=== PATIENT | male | born 1975 | race Caucasian/White ===

== ENCOUNTER 2023-02-27 11:58 | Emergency (ER) | payer SELFPAY ==
[2023-02-27] MEDS ORDERED: Sulfamethoxazole/Trimethoprim DS TABLET PO STA (12:14)
[2023-02-27] MEDS ORDERED: Tetanus/Diphtheria/Pertussis (Acell) ADULT Vaccine 0.5 ML IM ONE (12:15)
[2023-02-27] MEDS ORDERED: CEPHALEXIN 250 MG CAPSULE PO STA (12:15)
--- NOTE | 2023-02-27 12:20 | ED Integumentary General ---
General Chief Complaint: Skin/Wound Problems Stated Complaint: BILAT FEET PAIN Nursing Triage Note: PT AMB TO RM 6 PT CO OF WOUNDS TO FEET AND HANDS FROM CARRYING WOOD, PT CO OF PAIN 7/10 IN FEET. PT HAS AREAS OF BREAKDOWN THAT ARE REDDEND, SCABBED, PAINFUL AND HAVE YELLOWISH TYPE DRAINAGE NOTED. STARTED ON SATURDAY Source: patient Exam Limitations: no limitations History of Present Illness Date Seen by Provider: Feb 27, 2023 Time Seen by Provider: 12:17 Initial Comments Patient is a 47-year-old male who presents to the ED for wounds to his lower extremities. Patient states he is currently homeless. Has been sleeping outside. He states about a week ago he slipped fell scratching the top side of his foot. He is felt like his foot got caught in [place] and resulted in a skin abrasion. Over the past 2 or 3 days he has noted some redness and swelling and purulent drainage from the wounds to bilateral feet. He did have some sores to his hands but those seem to improve a week prior. Denies any drug use or alcohol use. Denies fever, chills, nausea, vomiting, diarrhea, chest pain, shortness of breath, cough.. Patient able to ambulate. Patient denies history of diabetes. Denies cleaning the wounds. He is not up-to-date on his tetanus. Allergies and Home Medications Allergies Coded Allergies: No Known Drug Allergies (Unverified , 02/27/23) Patient Home Medication List Home Medication List Reviewed: Yes Cephalexin (Cephalexin) 500 Mg Tablet, 500 MG PO QID Prescribed by: KAYLEE JOSHUA on 02/27/23 1227 Sulfamethoxazole/Trimethoprim (Bactrim Ds Tablet) 800 Mg-160 Mg Tablet, 1 EACH PO BID Prescribed by: KAYLEE JOSHUA on 02/27/23 1227 Review of Systems Review of Systems Constitutional: No chills, No diaphoresis, No fever, No malaise, No weakness EENTM: No hearing loss, No ear pain, No blurred vision Respiratory: No cough Cardiovascular: No chest pain Gastrointestinal: No abdominal pain, No diarrhea, No nausea, No vomiting Genitourinary: No decreased output, No discharge Musculoskeletal: No back pain, No joint pain, No joint swelling; muscle pain Skin: change in color All Other Systems Reviewed Negative Unless Noted: Yes Past Orsxleu-Ufyfcz-Xlugts Hx Patient Social History Tobacco Use?: Yes Tobacco type used: Cigarettes Smoking Status: Current Everyday Smoker Use of E-Cig and/or Vaping dev: No Substance use?: Yes Substance type: Methamphetamine, Marijuana Alcohol Use?: No Pt feels they are or have been: No Immunizations Up To Date First/Initial COVID19 Vaccinat: YES Second COVID19 Vaccination Ramsey: YES Physical Exam Vital Signs Vital Signs - First Documented 02/27/23 12:05 Temp 35.6 Pulse 93 Resp 18 B/P (MAP) 126/86 (99) Pulse Ox 99 Capillary Refill : Less Than 3 Seconds General Appearance: WD/WN, no apparent distress HEENT: PERRL/EOMI, normal ENT inspection, TMs normal, pharynx normal Neck: non-tender, full range of motion, supple Cardiovascular: regular rate, rhythm, no edema, no gallop, no JVD Respiratory: chest non-tender, lungs clear, normal breath sounds, no respirator y distress, no accessory muscle use Gastrointestinal: normal bowel sounds, non tender, no organomegaly Back: normal inspection, no CVA tenderness Extremities: other (Superficial wounds noted to the lower extremity bilateral with purulent drainage and crusting. No fluctuant mass. Small pustules.) Skin: other (Superficial purulent crusty wounds noted to the lower extremities bilateral. No fluctuant mass. Active drainage. Few areas on the left lower extremity with pustules) Progress/Results/Core Measures Results/Orders My Orders Orders - TERRY MEZA Sulfamethoxazole/Tmp Ds Tablet (Sulfamet (02/27/23 12:14) Dipht/Pertuss(Acell)/Tet Adult (Dipht/Pe (02/27/23 12:15) Foot, Right, 3 View (02/27/23 12:15) Cephalexin Capsule (Cephalexin Capsule) (02/27/23 12:15) Medications Given in ED Current Medications Medications Dose Ordered Sig/Danis Route Start Time Stop Time Status Last Admin Dose Admin Diphtheria/ Tetanus/Acell Pertussis 0.5 ml ONCE ONCE IM 02/27/23 12:15 02/27/23 12:16 DC 02/27/23 12:24 0.5 ML Vital Signs/I&O 02/27/23 12:05 Temp 35.6 Pulse 93 Resp 18 B/P (MAP) 126/86 (99) Pulse Ox 99 Blood Pressure Mean: 99 Departure Communication (PCP) Patient has superficial wounds to his lower extremities. Concern for infectious etiology. He states he did injure his right foot when he fell about a week ago. Does have some tenderness along the MTP joint. X-ray was obtained which was negative for fracture. Updated patient's tetanus secondary to the abrasions. Does have areas that look purulent. No fluctuant mass. Was able to drain a few of the lesions that was very superficial. Very small pustules noted which may increase in size and need incision and drainage. Patient was given a dose of Bactrim and Keflex. Discussed with patient continue with wound care. Keep the area clean with soap and water. Wounds were irrigated with normal saline and Shur cleans here. Topical Neosporin twice a day. If increased redness or swelling or pain to return back to ED. Follow-up your PCP in 2 to 3 days for reevaluation. Impression Primary Impression: Cellulitis Disposition: 01 HOME, SELF-CARE Condition: Stable Departure-Patient Inst. Decision time for Depature: 12:26 Referrals: [facility] [place]LOCAL PHYSICIAN (PCP) Primary Care Physician Patient Instructions: Cellulitis (Skin Infection), Adult ED Add. Discharge Instructions: Take antibiotics as prescribed. Keep the wound clean. Topical Neosporin twice a day. If increased redness or swelling to return back to ED All discharge instructions reviewed with patient and/or family. Voiced understanding. Scripts Cephalexin (Cephalexin) 500 Mg Tablet 500 MG PO QID for 7 Days, #28 TAB Prov: TERRY MEZA 02/27/23 Sulfamethoxazole/Trimethoprim (Bactrim Ds Tablet) 800 Mg-160 Mg Tablet 1 EACH PO BID for 7 Days, #14 TAB Prov: TERRY MEZA 02/27/23 TERRY MEZA Feb 27, 2023 12:20
[2023-02-27] MEDS ORDERED: CEPH500T PO (12:27)
[2023-02-27] MEDS ORDERED: SULF-221 PO (12:27)
--- NOTE | 2023-02-27 12:40 | Diagnostic Imaging Report ---
INDICATION: Right foot injury, with pain and swelling. AP, oblique, and lateral views of the right foot are obtained. FINDINGS: No acute fracture or dislocation is identified. No abnormal lytic or sclerotic focus is seen, and there is no radiopaque foreign body. IMPRESSION: No acute abnormality. Dictated by: Dictated on workstation # [id number]
[2023-02-27 12:51] VITALS: BP 126/86
== END 2023-02-27 12:51 | disposition home or self-care (01) ==
LOC: EDUNIT# 11:58 → ER 12:00
DX: L03.116 Cellulitis of left lower limb (principal); L03.115 Cellulitis of right lower limb; S90.922A Unspecified superficial injury of left foot, initial encounter; S90.921A Unspecified superficial injury of right foot, initial encounter; F17.210 Nicotine dependence, cigarettes, uncomplicated; Z23 Encounter for immunization; Z59.00 Homelessness unspecified; W01.10XA Fall on same level from slipping, tripping and stumbling with subsequent striking against unspecified object, initial encounter
CPT/HCPCS: 73630; 90715